=== PATIENT | male | born 1945 | race Caucasian/White ===

== ENCOUNTER 2017-12-17 13:14 | Inpatient (IN) ==
[2017-12-17] MEDS ORDERED: Ipratropium/Albuterol Neb 3 ML IH ONE (13:44)
--- NOTE | 2017-12-17 14:08 | Emergency Department Note ---
Disposition Clinical Impression: Acute exacerbation of chronic obstructive airways disease, Mucopurulent chronic bronchitis Disposition: Admitted As Inpatient Condition: Fair Time of Disposition: 15:00 (stephanie aguila) SOB HPI - General Chief Complaint: ED Shortness of Breath/Dyspnea Stated Complaint: Difficulty breathing Time Seen by Provider: 12/17/17 13:15 Source: patient Mode of arrival: ambulatory Limitations: no limitations Nursing Notes Reviewed: Yes Vital Signs Reviewed: Yes - History of Present Illness Pt Subjective Complaint: shortness of breath Onset (ago): day(s) Context: other (History of similar secondary to COPD) Severity: moderate Consistency/Duration: constant Improves with: oxygen, bronchodilators Worsens with: exertion, movement, coughing Known history of: COPD Associated symptoms: Reports: pain with inspiration, cough, wheezing, sputum production. Denies: chest pain, fever, orthopnea, lower extremity pain, polyuria, polydipsia, parasthesias, palpitations, hemoptysis, diaphoresis, nausea/vomiting, syncope, abdominal pain, rash, sense of impending doom Treatment prior to arrival: oxygen, bronchodilator Cough present: Yes Cough Description: Involuntary, Productive, Strong, Bronchospastic Cough Frequency: Intermittent Sputum production: Yes Sputum Amount: Moderate Sputum Color: Yellow, Green - Related Data Home Medications Medication Instructions Recorded Confirmed Acetaminophen [Tylenol] 325 mg PO Q6HR 11/06/17 12/17/17 Alendronate Sodium [Fosamax] 70 mg PO QWEEK 11/06/17 12/17/17 Aspirin 81 mg PO DAILY 11/06/17 12/17/17 Budesonide/Formoterol 160/4.5 2 puff IH BID 11/06/17 12/17/17 [Symbicort 160/4.5] Cholecalciferol (Vitamin D3) 1,000 mg PO DAILY 11/06/17 12/17/17 [Vitamin D3] Docusate Sodium [Dok] 100 mg PO BID 11/06/17 12/17/17 Gabapentin [Neurontin] 400 mg PO DAILY 11/06/17 12/17/17 Ipratropium/Albuterol Neb [Duoneb] 1 vial IH Q6H PRN 11/06/17 12/17/17 Levalbuterol Tartrate [Xopenex Hfa] 1 puff IH Q8H 11/06/17 12/17/17 Losartan [Cozaar] 25 mg PO DAILY 11/06/17 12/17/17 Methocarbamol [Robaxin] 500 mg PO Q4H PRN 11/06/17 12/17/17 Omeprazole [PriLOSEC] 20 mg PO DAILY 11/06/17 12/17/17 Quetiapine Fumarate [Seroquel] 400 mg PO BID 11/06/17 12/17/17 Simvastatin [Zocor] 40 mg PO DAILY 11/06/17 12/17/17 dilTIAZem HCl [Diltiazem 24Hr ER] 120 mg PO DAILY 11/06/17 12/17/17 Paroxetine HCl [Paxil] 40 mg PO DAILY 12/17/17 12/17/17 predniSONE [PredniSONE] 1 tab PO DAILY 12/17/17 12/17/17 Allergies Allergy/AdvReac Type Severity Reaction Status Date / Time No Known Allergies Allergy Verified 11/06/17 08:21 All systems ED: reviewed and negative except as stated. Review of Systems: As Per HPI Constitutional: Denies: fever, chills Eyes: Denies: eye pain, eye discharge ENT ED: Denies: ear pain, dysphagia Cardiovascular: Reports: chest pain. Denies: palpitations Respiratory: Reports: cough, dyspnea, wheezes, sputum production Gastrointestinal: Denies: abdominal pain, nausea Genitourinary: Denies: urgency, dysuria Musculoskeletal: Denies: back pain Integumentary: Denies: rash, abrasion Neurological: Denies: headache Psychiatric: Denies: anxiety Endocrine: Denies: fatigue Hematological/Lymphatic: Denies: easy bleeding Allergic/Immunologic: Denies: facial swelling Past Medical History - Past Medical History Attestation: Yes The following information was validated with the patient. Source: patient, old records reviewed, nursing notes reviewed Medical history: Reports: COPD, GERD, hyperlipidemia, hypertension Surgical history: Reports: other Psychiatric history: Reports: anxiety - Social History Smoking Status: Former smoker Smokeless Tobacco Status: No Alcohol use: Reports: none Drug use: Reports: none Physical Exam - General Limitations: no limitations General appearance: alert, in no apparent distress, anxious - Head Head exam: atraumatic - Eye Eye exam: Present: normal appearance, PERRL, EOMI - ENT ENT exam: normal exam, normal oropharynx, mucous membranes moist - Neck Neck exam: Present: normal inspection, full ROM, trachea midline - Chest Chest inspection: Present: normal inspection, symmetric chest wall rise - Respiratory Respiratory exam: Present: accessory muscle use, prolonged expiratory phase, other (Rhonchi) - Cardiovascular Cardiovascular exam: Present: regular rate, normal rhythm, normal heart sounds - Abdominal Exam Abdominal exam: Present: soft, Non-Tender, normal bowel sounds. Absent: mass, pulsatile mass - Expanded Upper Extremity Exam Shoulder exam: Present: normal inspection, full ROM Arm exam: Present: normal inspection, full ROM Elbow exam: Present: normal inspection, full ROM Forearm/Wrist exam: Present: normal inspection, full ROM Hand exam: Present: normal inspection, full ROM Vascular exam: Normal: capillary refill, radial pulse - Expanded Lower Extremity Exam Hip/Pelvis exam: Present: normal inspection, full ROM Upper leg exam: Present: normal inspection, full ROM Knee exam: Present: normal inspection, full ROM Lower leg exam: Present: normal inspection, full ROM Ankle exam: Present: normal inspection, full ROM Foot/toe exam: Present: normal inspection, full ROM Neurovascular/Tendon exam: Present: normal capillary refill, normal fine/light touch. Absent: motor deficit, sensory deficit, tendon deficit Gait: observed and normal - Back Exam Back exam: Present: normal inspection, full ROM. Absent: muscle spasm - Neurological Exam Neurological exam: Present: alert, oriented X3, CN II-XII intact, normal gait - Psychiatric Psychiatric exam: Present: normal affect, normal mood - Skin Skin exam: Present: warm, dry, intact, normal color Course Course Narrative: Patient was immediately seen and examined laboratory data was ordered based on the fact that he is complaining of COPD exacerbation-type symptoms as results having been obtained tissue showing bronchiolitis with COPD and then and noting that he has no elevated Mmd Unit Teacher-Two ABG was obtained as result we spoke to Dr. Handley agreed to admission patient transferred to [facility] stable Vital Signs Temperature 98.9 F 12/17/17 13:15 Pulse Rate 55 12/17/17 13:15 Respiratory Rate 20 12/17/17 13:15 Blood Pressure 133/91 12/17/17 13:15 O2 Sat by Pulse Oximetry 89 12/17/17 13:15 Temperature 98.9 F 12/17/17 13:15 Pulse Rate 101 12/17/17 14:55 Respiratory Rate 18 12/17/17 14:55 Blood Pressure 146/73 12/17/17 14:55 O2 Sat by Pulse Oximetry 91 12/17/17 14:55 Oxygen Delivery Oxygen Delivery Nasal Cannula Procedures - ABG Interpretation ABG Interpretation 1 Additional Comments: Compensated respiratory acidosis Shortness of Breath/Dyspnea - Differential Diagnosis Likely: acute exacerbation of chronic obstructive airways disease, pneumonia - Medical Records Medical records reviewed: Yes I reviewed the patient's medical records. - Lab Data Lab results reviewed: Yes I reviewed the patient's lab results. Result diagrams: 12/17/17 14:00 12/17/17 14:00 Lab Results 12/17/17 12/17/17 12/17/17 Range/Units 14:00 14:00 14:00 WBC 10.5 (4.3-11.1) K/mcL RBC 3.45 L (4.19-5.50) M/mcL Hgb 10.2 L (12.9-16.9) g/dL Hct 34.5 L (37.5-50.1) % MCV 100.0 (83.0-100.0) fL MCH 29.6 (28.0-33.3) pg MCHC 29.6 L (31.6-35.5) g/dL RDW 13.4 (11.5-14.5) % Plt Count 254 (140-400) K/mcL MPV 10.1 (9.4-12.4) fL Immature Gran % 0.4 (0-4) % Seg Neutrophils % 76.8 % Lymphocytes % 13.3 % Monocytes % 6.6 % Eosinophils % 2.5 % Basophils % 0.4 % Neutrophils # 8.1 (1.6-8.9) K/mcL Lymphocytes # 1.4 (0.6-4.6) K/mcL Monocytes # 0.7 (0.0-1.3) K/mcL Eosinophils # 0.3 (0.0-0.6) K/mcL Basophils # 0.0 (0.0-0.2) K/mcL PT (9.4-12.1) Seconds INR APTT (26.0-36.0) Seconds D-Dimer (0-500) ng/mLFEU Sodium 142 (136-145) mEq/L Potassium 4.2 (3.5-5.1) mEq/L Chloride 93 L (98-107) mEq/L Carbon Dioxide > 45 H* (23-29) mEq/L BUN 19 (8-23) mg/dL Creatinine 0.84 (0.70-1.30) mg/dL Est GFR ( Amer) > 60 (> 60) Est GFR (Non-Af Amer) > 60 (> 60) BUN/Creatinine Ratio 23 (6-26) Glucose 132 H (70-105) mg/dL Calculated Osmolality 298 (280-300) Lactic Acid 0.7 (0.5-2.2) mmol/L Calcium 10.4 H (8.6-10.3) mg/dL Total Bilirubin 0.3 (0.3-1.0) mg/dL AST 16 (13-39) Units/L ALT 17 (7-52) Units/L Alkaline Phosphatase 69 (34-104) Units/L Troponin I (< 0.04) ng/mL B-Natriuretic Peptide (Less than 100) pg/mL Serum Total Protein 7.0 (6.4-8.9) g/dL Albumin 4.1 (3.5-5.7) g/dL Globulin 2.9 (2.4-3.5) g/dL Albumin/Globulin Ratio 1.4 (1.1-2.2) 12/17/17 12/17/17 12/17/17 Range/Units 14:00 14:00 14:00 WBC (4.3-11.1) K/mcL RBC (4.19-5.50) M/mcL Hgb (12.9-16.9) g/dL Hct (37.5-50.1) % MCV (83.0-100.0) fL MCH (28.0-33.3) pg MCHC (31.6-35.5) g/dL RDW (11.5-14.5) % Plt Count (140-400) K/mcL MPV (9.4-12.4) fL Immature Gran % (0-4) % Seg Neutrophils % % Lymphocytes % % Monocytes % % Eosinophils % % Basophils % % Neutrophils # (1.6-8.9) K/mcL Lymphocytes # (0.6-4.6) K/mcL Monocytes # (0.0-1.3) K/mcL Eosinophils # (0.0-0.6) K/mcL Basophils # (0.0-0.2) K/mcL PT 10.4 (9.4-12.1) Seconds INR 1.0 APTT 34.0 (26.0-36.0) Seconds D-Dimer 217 (0-500) ng/mLFEU Sodium (136-145) mEq/L Potassium (3.5-5.1) mEq/L Chloride (98-107) mEq/L Carbon Dioxide (23-29) mEq/L BUN (8-23) mg/dL Creatinine (0.70-1.30) mg/dL Est GFR ( Amer) (> 60) Est GFR (Non-Af Amer) (> 60) BUN/Creatinine Ratio (6-26) Glucose (70-105) mg/dL Calculated Osmolality (280-300) Lactic Acid (0.5-2.2) mmol/L Calcium (8.6-10.3) mg/dL Total Bilirubin (0.3-1.0) mg/dL AST (13-39) Units/L ALT (7-52) Units/L Alkaline Phosphatase (34-104) Units/L Troponin I < 0.03 (< 0.04) ng/mL B-Natriuretic Peptide 51 (Less than 100) pg/mL Serum Total Protein (6.4-8.9) g/dL Albumin (3.5-5.7) g/dL Globulin (2.4-3.5) g/dL Albumin/Globulin Ratio (1.1-2.2) - Radiology Data Radiology results reviewed: Yes I reviewed the patient's radiology results. ITS Impressions Chest X-Ray 12/17/17 13:42 IMPRESSION: Diffuse COPD, with increased peribronchovascular change noted in the right lung base and left perihilar region which could represent superimposed acute bronchiolitis. D/ / Jovanny Crain MD / Jovanny Crain MD Interpreting Provider: Jovanny Crain MD - EKG Data EKG attestation: Yes I reviewed and interpreted this EKG. EKG results narrative: Atrial fib with a responsible 110 rate 110 QRS 105 QT 308 axis LXVI occasional P wave is noted Critical Care Time Critical Care Time: No
[2017-12-17 14:15] LABS: Basophils % 0.4 %; Eosinophils # 0.3 K/mcL (0.0-0.6); Eosinophils % 2.5 %; Hematocrit 34.5 % (37.5-50.1); Hemoglobin 10.2 g/dL (12.9-16.9); Immature Granulocytes % 0.4 % (0-4); Lymphocytes # 1.4 K/mcL (0.6-4.6); Lymphocytes % 13.3 %; Mean Corpuscular HGB Conc 29.6 g/dL (31.6-35.5); Mean Corpuscular Hemoglobin 29.6 pg (28.0-33.3); Mean Platelet Volume 10.1 fL (9.4-12.4); Monocytes # 0.7 K/mcL (0.0-1.3); Monocytes % 6.6 %; Neutrophils # 8.1 K/mcL (1.6-8.9); Platelet Count 254 K/mcL (140-400); Red Blood Count 3.45 M/mcL (4.19-5.50); Red Cell Distribution Width 13.4 % (11.5-14.5); Segmented Neutrophils % 76.8 %
[2017-12-17 14:24] LABS: Prothrombin Time 10.4 Seconds (9.4-12.1)
[2017-12-17] MEDS ORDERED: Azithromycin 500 MG in D5% in Water 250 ML IVPB ONE (14:52)
[2017-12-17] MEDS ORDERED: methylPREDNISolone 125 MG/2 ML VIAL IVP ONE (14:52)
[2017-12-17 14:56] LABS: Carbon Dioxide > 45 mEq/L (23-29)
[2017-12-17 15:03] LABS: Alanine Aminotransferase 17 Units/L (7-52); Albumin 4.1 g/dL (3.5-5.7); Albumin/Globulin Ratio 1.4 (1.1-2.2); Alkaline Phosphatase 69 Units/L (34-104); Aspartate Amino Transferase 16 Units/L (13-39); BUN/Creatinine Ratio 23 (6-26); Bilirubin,Total 0.3 mg/dL (0.3-1.0); Blood Urea Nitrogen 19 mg/dL (8-23); Calcium 10.4 mg/dL (8.6-10.3); Chloride 93 mEq/L (98-107); Globulin 2.9 g/dL (2.4-3.5); Glucose 132 mg/dL (70-105); Osmolality,Calculated 298 (280-300); Potassium 4.2 mEq/L (3.5-5.1); Sodium 142 mEq/L (136-145); eGFR For African Americans > 60 (> 60); eGFR For Non-African Americans > 60 (> 60)
[2017-12-17 15:20] LABS: ABG Base Excess 21 mEq/L (-2 to 3); ABG HCO3 49 mEq/L (21-27); ABG Oxygen Saturation 89 % (95-98); ABG PCO2 76 mmHg (35-45); ABG PH 7.42 pH Units (7.32-7.45); ABG PO2 59 mmHg (85-104); ABG TCO2 52 mEq/L (20-26); Blood Gas FiO2 2.5 (1-15=lpm or21-100=%)
[2017-12-17] MEDS ORDERED: NON-FORMULARY MEDICATION 1 EACH EACH (Alendronate Sodium [Fosamax] 70 MG) PO SCH (18:40)
[2017-12-17] MEDS ORDERED: Naloxone 0.4 MG/ML INJ IVP PRN (18:40)
[2017-12-17] MEDS ORDERED: Albuterol 2.5 MG/3 ML NEBULIZER IH PRN (18:40)
[2017-12-17] MEDS ORDERED: Methocarbamol 500 MG TABLET PO PRN (18:40)
--- NOTE | 2017-12-17 18:45 | Electrocardiograph Report ---
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
[2017-12-17] MEDS: Ipratropium/Albuterol Neb 3 ML IH SCH ×2 (19:13→22:00)
[2017-12-17] MEDS: 0.9 % Sodium Chloride 1,000 ML IVC SCH (20:47)
[2017-12-17] MEDS: MethylPREDNISolone 40 MG/ML VIAL IVP SCH (20:48)
[2017-12-17] MEDS ORDERED: Ipratropium/Albuterol Neb 3 ML IH PRN (22:00)
[2017-12-17] MEDS: Budesonide/Formoterol 160/4.5 MDI IH SCH (22:01)
[2017-12-17] MEDS: Levalbuterol 1 PUFF INHALER IH SCH (22:47)
[2017-12-18] MEDS: MethylPREDNISolone 40 MG/ML VIAL IVP SCH ×4 (00:31→17:31)
[2017-12-18] MEDS: Acetaminophen 325 MG TABLET PO SCH ×5 (00:32→17:31)
[2017-12-18] MEDS: Ipratropium/Albuterol Neb 3 ML IH SCH ×4 (04:29→23:13)
[2017-12-18 06:13] LABS: Basophils % 0.1 %; Hematocrit 31.7 % (37.5-50.1); Hemoglobin 9.6 g/dL (12.9-16.9); Immature Granulocytes % 0.6 % (0-4); Lymphocytes # 0.8 K/mcL (0.6-4.6); Lymphocytes % 9.5 %; Mean Corpuscular HGB Conc 30.3 g/dL (31.6-35.5); Mean Corpuscular Hemoglobin 29.8 pg (28.0-33.3); Mean Corpuscular Volume 98.4 fL (83.0-100.0); Mean Platelet Volume 10.8 fL (9.4-12.4); Monocytes # 0.1 K/mcL (0.0-1.3); Monocytes % 1.4 %; Neutrophils # 7.4 K/mcL (1.6-8.9); Platelet Count 266 K/mcL (140-400); Red Blood Count 3.22 M/mcL (4.19-5.50); Red Cell Distribution Width 13.5 % (11.5-14.5); Segmented Neutrophils % 88.4 %
[2017-12-18 07:16] LABS: BUN/Creatinine Ratio 29 (6-26); Blood Urea Nitrogen 27 mg/dL (8-23); Calcium 9.5 mg/dL (8.6-10.3); Carbon Dioxide 39 mEq/L (23-29); Chloride 95 mEq/L (98-107); Glucose 176 mg/dL (70-105); Osmolality,Calculated 299 (280-300); Sodium 140 mEq/L (136-145); eGFR For African Americans > 60 (> 60); eGFR For Non-African Americans > 60 (> 60)
[2017-12-18] MEDS: Levalbuterol 1 PUFF INHALER IH SCH ×2 (07:18→15:33)
[2017-12-18] MEDS ORDERED: Aspirin 81 MG TAB.CHEW PO SCH (09:00)
[2017-12-18] MEDS: 0.9 % Sodium Chloride 1,000 ML IVC SCH (09:39)
[2017-12-18 09:42] LABS: % Iron Saturation 8 % (20-55); Iron 26 mcg/dL (65-175); Transferrin 241 mg/dL (203-362)
[2017-12-18 10:00] LABS: Ferritin 83 ng/mL (20-250)
[2017-12-18 10:06] LABS: Vitamin B12 401 pg/mL (250-1100)
[2017-12-18 10:28] LABS: Folate > 22.3 ng/mL (3.0-16.0)
--- NOTE | 2017-12-18 10:48 | Internal Med History&Physical ---
Date of Encounter: 12/18/17 Time of Encounter: 10:05 Assessment and Plan (1) Acute exacerbation of chronic obstructive airways disease Current visit: Yes Status: Acute He has been started on Rocephin and Zithromax. I will add lactobacillus. Continue scheduled DuoNeb nebs and Symbicort. Solu-Medrol has been ordered. (2) Anemia Current visit: Yes Status: Acute Anemia testing shows iron 26, transferrin saturation 8%, transferrin 241, ferritin 83, B12 401, and folate > 22.3. Will start ferrous sulfate with vitamin C. Qualifiers: Anemia type: unspecified type Qualified Code(s): D64.9 - Anemia, unspecified (3) Hyperglycemia Current visit: Yes Status: Acute Will check hemoglobin A1c. Internal Medicine - H&P: HPI Chief complaint: Dyspnea Admitted From: Emergency Dept Plans for Post Hospital Care: Home History of present illness: Mr. Verde is a 71 year old male who came to emergency room stating he had a near fall while ambulating in his house. He did not fall and was able to stabilize himself using his walker. The episode caused him to become dyspneic. He took a nebulizer treatment without improvement. He came to emergency room and was evaluated and felt to have exacerbation of COPD. He was admitted to [facility] floor for ongoing care needs. He states his dyspnea is minimally improved at this time. His respiratory history is significant for having smoked from age [age] up to 3 packs per day. He wears oxygen at home / has a diagnosis of COPD. He reports multiple episodes of pneumonia in the past. He states [place] has done lung CT scan within the past 1-2 months. Past Med Surg Social Fam HX - Past Medical History Medical history: COPD, GERD, hyperlipidemia, hypertension Additional medical history: Tardive dyskinesia Diverticulitis. Tremor Arthralgia Knee. Cervical Myelopathy Pneumonia. Chronic pain syndrome Degeration of Lumbar/sacral. constipation Hyperkalemia. cognitive disorder Organic brain disorder. Anemia Hallucinations Dyspepsia. Pulmomary [place] lesion. Neoplasm f the Trachea. PE Psychiatric history: anxiety - Past Surgical History Surgical History: other Additional surgical history: foot surgery and ear surgery - Social History Smoking Status: Former smoker Smokeless Tobacco Status: No Alcohol use: none Drug use: none - Family History Mother History Unknown: Yes Internal Medicine - H&P: Meds Acetaminophen [Tylenol] 325 mg PO Q6HR 11/06/17 [History] Alendronate Sodium [Fosamax] 70 mg PO QWEEK 11/06/17 [History] Aspirin 81 mg PO DAILY 11/06/17 [History] Budesonide/Formoterol 160/4.5 [Symbicort 160/4.5] 2 puff IH BID 11/06/17 [ History] Cholecalciferol (Vitamin D3) [Vitamin D3] 1,000 mg PO DAILY 11/06/17 [History] Docusate Sodium [Dok] 100 mg PO BID 11/06/17 [History] Gabapentin [Neurontin] 400 mg PO DAILY 11/06/17 [History] Ipratropium/Albuterol Neb [Duoneb] 1 vial IH Q6H PRN 11/06/17 [History] Levalbuterol Tartrate [Xopenex Hfa] 1 puff IH Q8H 11/06/17 [History] Losartan [Cozaar] 25 mg PO DAILY 11/06/17 [History] Methocarbamol [Robaxin] 500 mg PO Q4H PRN 11/06/17 [History] Omeprazole [PriLOSEC] 40 mg PO BID 11/06/17 [History] Quetiapine Fumarate [Seroquel] 400 mg PO BID 11/06/17 [History] Simvastatin [Zocor] 40 mg PO DAILY 11/06/17 [History] dilTIAZem HCl [Diltiazem 24Hr ER] 120 mg PO DAILY 11/06/17 [History] Paroxetine HCl [Paxil] 40 mg PO DAILY 12/17/17 [History] Sucralfate [Carafate] 2 ml PO TID 12/17/17 [History] predniSONE [PredniSONE] 1 tab PO DAILY 12/17/17 [History] 3 Allergy/AdvReac Type Severity Reaction Status Date / Time No Known Allergies Allergy Verified 11/06/17 08:21 All Systems PM: A 10-system review of systems was performed and is negative for pertinent findings except as documented above in the HPI. Review of systems: Gen.: He states his weight has been stable the past few months Cardiovascular: He has history of hypertension but denies IN heart failure angina DVT or pulmonary embolus Respiratory: As per history of present illness GI: He denies disorders of his liver gallbladder or exocrine pancreas : He denies hematuria dysuria or kidney stones Neurologic: He denies large disposition strokes or seizures. Endocrine: He has borderline diabetes and hyperlipidemia but denies thyroid disease Hematology/oncology: He denies internal malignancies. He was unaware he had anemia on labs in emergency room. He denies other blood disorders. Psychiatric: He takes Paxil and Seroquel but does not know the diagnoses for these. [place] skeletal: He has muscle cramps and has had right ankle fracture surgical repair and left knee surgery. He denies gout or significant arthritis or other bone joint or muscle disorders. - Constitutional Vitals: Temp Pulse Resp BP Pulse Ox 98.6 F 104 16 171/80 95 12/18/17 06:00 12/18/17 06:00 12/18/17 06:00 12/18/17 06:00 12/18/17 06:00 Exam: Gen.: He is a well-developed well-nourished male sitting on the side of bed who appears dyspneic. HEENT: Head is atraumatic and normal cephalic. Eyes: EOMI. There is no scleral icterus. Mouth: Mucosa is moist. Neck: Supple and nontender. There is no thyromegaly or adenopathy noted. Heart: Regular without murmurs gallops or ectopics Lungs: No wheezes or crackles are heard. Abdomen: Soft and nontender. No masses or guarding are noted. Extremities: There is no cyanosis edema or clubbing noted. Dorsalis pedis and posttibial pulses are trace to 1+ palpable bilaterally. Neurologic: Mental status: He is talkative and a fairly good historian. He does did not remember some details of his history. Cranial nerves: Smile is symmetric. Forehead wrinkles bilaterally. Tongue protrudes midline. EOMI. Motor: There is no pronator drift. Cerebellar: Finger to nose is intact bilaterally. Skin: Warm and dry Internal Med - H&P Results - Labs CBC & Chem 7: 12/18/17 04:51 12/18/17 04:51 Labs: Short CBC 12/18/17 Range/Units 04:51 WBC 8.4 (4.3-11.1) K/mcL Hgb 9.6 L (12.9-16.9) g/dL Hct 31.7 L (37.5-50.1) % Plt Count 266 (140-400) K/mcL Neutrophils # 7.4 (1.6-8.9) K/mcL BMP 12/18/17 04:51 Sodium 140 Potassium 4.0 Chloride 95 L Carbon Dioxide 39 H BUN 27 H Creatinine 0.92 Glucose 176 H Calcium 9.5 - ABG Interpretation ABG results: 12/17/17 15:16 ABG pH 7.42 ABG pCO2 76 H* ABG pO2 59 L ABG HCO3 49 H ABG Total CO2 52 H ABG O2 Saturation 89 L ABG Base Excess 21 H
[2017-12-18] MEDS: Gabapentin 400 MG CAPSULE PO SCH (10:54)
[2017-12-18] MEDS: Cholecalciferol (D-3) 1,000 UNIT TABLET PO SCH (10:55)
[2017-12-18] MEDS: Diltiazem CD (24hr) 120 MG CAPSULE PO SCH (10:55)
[2017-12-18] MEDS: cefTRIAXone 1,000 MG in Water for inj. (sterile) 20 ML 10 ML IVP SCH (10:55)
[2017-12-18] MEDS ORDERED: ALPRAZolam 0.25 MG TABLET PO PRN (10:59)
[2017-12-18] MEDS: Budesonide/Formoterol 160/4.5 MDI IH SCH ×2 (11:27→23:12)
[2017-12-18] MEDS: Azithromycin 500 MG in D5% in Water 250 ML IVPB SCH (17:31)
[2017-12-18 20:38] LABS: Estimated Average Glucose 134 mg/dl; Hemoglobin A1C 6.3 %
[2017-12-18] MEDS: Lactobacillus 1 EACH CAP.SPRINK PO SCH (20:49)
[2017-12-19] MEDS: Acetaminophen 325 MG TABLET PO SCH ×2 (00:02→06:11)
[2017-12-19] MEDS: MethylPREDNISolone 40 MG/ML VIAL IVP SCH ×2 (00:02→06:12)
[2017-12-19] MEDS: Levalbuterol 1 PUFF INHALER IH SCH ×4 (00:46→21:55)
[2017-12-19] MEDS: Ipratropium/Albuterol Neb 3 ML IH SCH ×4 (03:17→22:10)
[2017-12-19] MEDS: Ascorbic Acid 500 MG TABLET PO SCH (06:11)
[2017-12-19 06:35] LABS: Hematocrit 30.1 % (37.5-50.1); Hemoglobin 9.4 g/dL (12.9-16.9); Immature Granulocytes % 0.7 % (0-4); Lymphocytes # 0.7 K/mcL (0.6-4.6); Lymphocytes % 5.2 %; Mean Corpuscular HGB Conc 31.2 g/dL (31.6-35.5); Mean Corpuscular Hemoglobin 29.9 pg (28.0-33.3); Mean Corpuscular Volume 95.9 fL (83.0-100.0); Mean Platelet Volume 10.9 fL (9.4-12.4); Monocytes # 0.6 K/mcL (0.0-1.3); Monocytes % 4.3 %; Neutrophils # 12.2 K/mcL (1.6-8.9); Platelet Count 270 K/mcL (140-400); Red Blood Count 3.14 M/mcL (4.19-5.50); Red Cell Distribution Width 13.7 % (11.5-14.5); Segmented Neutrophils % 89.8 %
[2017-12-19 06:58] LABS: BUN/Creatinine Ratio 38 (6-26); Blood Urea Nitrogen 33 mg/dL (8-23); Calcium 8.7 mg/dL (8.6-10.3); Carbon Dioxide 37 mEq/L (23-29); Chloride 97 mEq/L (98-107); Glucose 176 mg/dL (70-105); Osmolality,Calculated 304 (280-300); Potassium 4.1 mEq/L (3.5-5.1); Sodium 141 mEq/L (136-145); eGFR For African Americans > 60 (> 60); eGFR For Non-African Americans > 60 (> 60)
--- NOTE | 2017-12-19 09:06 | Internal Med Progress Note ---
Date of Encounter: 12/19/17 Time of Encounter: 09:00 - Assessment and plan (1) Acute exacerbation of chronic obstructive airways disease Current Visit: Yes Status: Acute Assessment and plan: December 19. Will continue present regimen except change to oral prednisone. We will change Xanax to scheduled. Anticipate discharge home tomorrow if stable. (2) Anemia Current Visit: Yes Status: Acute Assessment and plan: December 19. Continue ferrous sulfate with vitamin C Qualifiers: Anemia type: unspecified type Qualified Code(s): D64.9 - Anemia, unspecified (3) Hyperglycemia Current Visit: Yes Status: Acute Assessment and plan: December 19. Hemoglobin A1c acceptable at 6.3%. - Subjective Interval history: December 19. He has no new complaints and feels better but does not yet feel back to his baseline. - Constitutional Vitals: Temp Pulse Resp BP Pulse Ox 98.4 F 106 14 161/67 92 12/19/17 06:30 12/19/17 06:30 12/19/17 07:28 12/19/17 06:30 12/19/17 07:28 Exam: He appears very anxious. He is still dyspneic and speech is difficult to understand occasionally. Lungs show diminished breath sounds diffusely with very slight wheezing heard posteriorly. I reviewed his medications and lab results. Internal Medicine: Result - Labs CBC & Chem 7: 12/19/17 05:45 12/19/17 05:45 Labs: Short CBC 12/19/17 Range/Units 05:45 WBC 13.6 H D (4.3-11.1) K/mcL Hgb 9.4 L (12.9-16.9) g/dL Hct 30.1 L (37.5-50.1) % Plt Count 270 (140-400) K/mcL Neutrophils # 12.2 H (1.6-8.9) K/mcL BMP 12/19/17 05:45 Sodium 141 Potassium 4.1 Chloride 97 L Carbon Dioxide 37 H BUN 33 H Creatinine 0.86 Glucose 176 H Calcium 8.7 - ABG Interpretation ABG results: ABG ABG pH 7.42 pH Units (7.32-7.45) 12/17/17 15:16 ABG pCO2 76 mmHg (35-45) H* 12/17/17 15:16 ABG pO2 59 mmHg (85-104) L 12/17/17 15:16 ABG O2 Saturation 89 % (95-98) L 12/17/17 15:16 PT/INR, D-dimer PT 11.0 Seconds (9.4-12.1) 12/18/17 04:51 D-Dimer 217 ng/mLFEU (0-500) 12/17/17 14:00 Consult Discharge Plan - Plan [facility]errals: [facility]Primary Care Provider[facility] - 1 week Bee Ferguson [Family Provider] - 1 week
[2017-12-19] MEDS: Cholecalciferol (D-3) 1,000 UNIT TABLET PO SCH (09:07)
[2017-12-19] MEDS: Lactobacillus 1 EACH CAP.SPRINK PO SCH ×2 (09:07→21:14)
[2017-12-19] MEDS: Diltiazem CD (24hr) 120 MG CAPSULE PO SCH (09:07)
[2017-12-19] MEDS: Gabapentin 400 MG CAPSULE PO SCH (09:07)
[2017-12-19] MEDS: cefTRIAXone 1,000 MG in Water for inj. (sterile) 20 ML 10 ML IVP SCH (09:08)
[2017-12-19] MEDS: Budesonide/Formoterol 160/4.5 MDI IH SCH ×2 (10:18→22:10)
[2017-12-19] MEDS ORDERED: Acetaminophen 325 MG TABLET PO PRN (15:56)
[2017-12-19] MEDS: ALPRAZolam 0.25 MG TABLET PO SCH ×2 (16:13→23:57)
[2017-12-19] MEDS: predniSONE 10 MG TABLET PO SCH (16:14)
[2017-12-19] MEDS: Azithromycin 500 MG in D5% in Water 250 ML IVPB SCH (16:14)
[2017-12-20] MEDS: Ipratropium/Albuterol Neb 3 ML IH SCH ×2 (05:19→11:11)
[2017-12-20] MEDS ORDERED: *HR* Enoxaparin 40 MG/0.4 ML SYRINGE SQ SCH (06:00)
[2017-12-20 06:37] VITALS: BP 165/87
[2017-12-20] MEDS: Ascorbic Acid 500 MG TABLET PO SCH (06:43)
[2017-12-20] MEDS: Levalbuterol 1 PUFF INHALER IH SCH (08:22)
--- NOTE | 2017-12-20 09:36 | Discharge Summary ---
Date of Encounter: 12/20/17 Time of Encounter: 09:25 - Discharge Diagnosis (1) Acute exacerbation of chronic obstructive airways disease Priority: Primary Status: Acute (2) Anemia Priority: Secondary Status: Acute Qualifiers: Anemia type: unspecified type Qualified Code(s): D64.9 - Anemia, unspecified (3) Hyperglycemia Priority: Secondary Status: Acute Hospital course: Mr. Verde is a 71 year old male who came to emergency room stating he had a near fall while ambulating in his house. He did not fall and was able to stabilize himself using his walker. The episode caused him to become dyspneic. He took a nebulizer treatment without improvement. He came to emergency room and was evaluated and felt to have exacerbation of COPD. He was admitted to [facility] for ongoing care needs. Initial orders were written by the emergency room physician. I saw him on December 18 and performed a history and physical. He was started on IV Rocephin and Zithromax with lactobacillus. He had clinical improvement and felt stable for discharge home on December 20. He will continue with antibiotic and probiotic for 3 additional days at discharge. Hemoglobin A1c returned acceptable at 6.3%. He appears to have DM 2 that is diet controlled at this time. Blood pressure remained slightly above desirable range. He will be started on Toprol-XL at discharge to improve blood pressure and borderline tachycardia. He will follow up with his PCP at [facility] within 1 week. - Time Spent with Patient Total time spent providing and/or coordinating discharge services: - Discharge Medications Prescriptions: Cefuroxime PO [Ceftin] 500 mg PO Q12HR #6 tablet Azithromycin [Zithromax] 250 mg PO DAILY #3 tablet Lactobacillus [Culturelle] 1 each PO BID #6 cap.sprink Metoprolol XL (24 HR) Succ [Toprol XL] 25 mg PO DAILY #30 tab.er.24h predniSONE [PredniSONE] 10 mg PO BIDWM #6 tablet Home Medications: Acetaminophen [Tylenol] 325 mg PO Q6HR 11/06/17 [History] Alendronate Sodium [Fosamax] 70 mg PO QWEEK 11/06/17 [History] Aspirin 81 mg PO DAILY 11/06/17 [History] Budesonide/Formoterol 160/4.5 [Symbicort 160/4.5] 2 puff IH BID 11/06/17 [ History] Cholecalciferol (Vitamin D3) [Vitamin D3] 1,000 mg PO DAILY 11/06/17 [History] Docusate Sodium [Dok] 100 mg PO BID 11/06/17 [History] Gabapentin [Neurontin] 400 mg PO DAILY 11/06/17 [History] Ipratropium/Albuterol Neb [Duoneb] 1 vial IH Q6H PRN 11/06/17 [History] Levalbuterol Tartrate [Xopenex Hfa] 1 puff IH Q8H 11/06/17 [History] Losartan [Cozaar] 25 mg PO DAILY 11/06/17 [History] Methocarbamol [Robaxin] 500 mg PO Q4H PRN 11/06/17 [History] Omeprazole [PriLOSEC] 40 mg PO BID 11/06/17 [History] Quetiapine Fumarate [Seroquel] 400 mg PO BID 11/06/17 [History] Simvastatin [Zocor] 40 mg PO DAILY 11/06/17 [History] dilTIAZem HCl [Diltiazem 24Hr ER] 120 mg PO DAILY 11/06/17 [History] Paroxetine HCl [Paxil] 40 mg PO DAILY 12/17/17 [History] Sucralfate [Carafate] 2 ml PO TID 12/17/17 [History] predniSONE [PredniSONE] 1 tab PO DAILY 12/17/17 [History] Azithromycin [Zithromax] 250 mg PO DAILY #3 tablet 12/20/17 [Rx] Cefuroxime PO [Ceftin] 500 mg PO Q12HR #6 tablet 12/20/17 [Rx] Lactobacillus [Culturelle] 1 each PO BID #6 cap.sprink 12/20/17 [Rx] Metoprolol XL (24 HR) Succ [Toprol XL] 25 mg PO DAILY #30 tab.er.24h 12/20/17 [ Rx] predniSONE [PredniSONE] 10 mg PO BIDWM #6 tablet 12/20/17 [Rx] Allergies/Adverse Reactions: 3 Allergy/AdvReac Type Severity Reaction Status Date / Time No Known Allergies Allergy Verified 11/06/17 08:21 Date of admission: 12/19/17 11:44 [facility] - Constitutional Vitals: Temp Pulse Resp BP Pulse Ox 98.6 F 99 18 165/87 97 12/20/17 06:36 12/20/17 06:36 12/20/17 06:36 12/20/17 06:36 12/20/17 06:36 - Patient Status Disposition: Home, Self-Care Condition: Fair Overall status at discharge: patient is progressing back to baseline - Discharge Instructions Follow Up With: [facility] [Primary Care Provider[facility] - 1 week - Diet and Activity Activity: resume usual activities as tolerated Diet: advance to your usual diet
[2017-12-20] MEDS: Lactobacillus 1 EACH CAP.SPRINK PO SCH (09:50)
[2017-12-20] MEDS: Gabapentin 400 MG CAPSULE PO SCH (09:50)
[2017-12-20] MEDS: Cholecalciferol (D-3) 1,000 UNIT TABLET PO SCH (09:50)
[2017-12-20] MEDS: predniSONE 10 MG TABLET PO SCH (09:50)
[2017-12-20] MEDS: cefTRIAXone 1,000 MG in Water for inj. (sterile) 20 ML 10 ML IVP SCH (09:51)
[2017-12-20] MEDS: ALPRAZolam 0.25 MG TABLET PO SCH (09:51)
[2017-12-20] MEDS: Diltiazem CD (24hr) 120 MG CAPSULE PO SCH (09:51)
[2017-12-20] MEDS: Budesonide/Formoterol 160/4.5 MDI IH SCH (11:12)
== END 2017-12-20 12:40 | disposition home or self-care (01) | DRG 192 ==
LOC: INPPIK 13:14 → EMEROOPIK 13:14 → INPPIK 16:26
PROVIDERS: ADMIT Internal Medicine; ATTEND Internal Medicine

== ENCOUNTER 2018-08-21 17:55 | Inpatient (IN) ==
--- NOTE | 2018-08-21 18:09 | Emergency Department Note ---
Disposition Clinical Impression: Acute exacerbation of chronic obstructive airways disease, Hypercapnia, Elevated troponin I level Disposition: Admitted As Inpatient Condition: Good Referrals: NONE,PCP [Primary Care Provider] - Forms: ED Satisfaction Letter Time of Disposition: 19:29 SOB HPI - General Chief Complaint: ED Shortness of Breath/Dyspnea Stated Complaint: difficulty in breathing Time Seen by Provider: 08/21/18 18:00 Source: EMS Mode of arrival: EMS Limitations: physical limitation Nursing Notes Reviewed: Yes Vital Signs Reviewed: Yes - History of Present Illness 72-year-old male who presents to the emergency room is having altered mental status patient apparently had a similar episode earlier this year in July same presentation patient apparently had been fine all day then he when he went to dinner and altered mental status where he was lethargic was having trouble getting up and moving 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 a states that they think that he has CO2 is not up-to-date not sure the Last Evening He's Had No Ab dominal Pain or Discomfort He's Had No Reported Cough Congestion Chest Pain Prior to This As Result Patient Was Sent to the ER History Is Limited Because the Patient Is Nonverbal at This Time and History Is Limited Provided by the Changes Shift Nursing Staff at the Care Facility Pt Subjective Complaint: shortness of breath Onset (ago): Just [employer] Severity: moderate Consistency/Duration: constant Improves with: nothing Worsens with: nothing Known history of: COPD Associated symptoms: Reports: other (Altered mental status). Denies: chest pain, pain with inspiration, fever, cough, wheezing, sputum production, orthopnea, lower extremity pain, polyuria, polydipsia, parasthesias, palpitations, hemoptysis, diaphoresis, nausea/vomiting, syncope, abdominal pain, sense of impending doom Treatment prior to arrival: oxygen, other (BiPAP) Cough present: No Sputum production: No - Related Data Home Medications Medication Instructions Recorded Confirmed Acetaminophen [Tylenol] 325 mg PO Q8H PRN 11/06/17 08/21/18 Aspirin 81 mg PO DAILY 11/06/17 08/21/18 Budesonide/Formoterol 160/4.5 2 puff IH BID 11/06/17 08/21/18 [Symbicort 160/4.5] Cholecalciferol (Vitamin D3) 1,000 mg PO DAILY 11/06/17 08/21/18 [Vitamin D3] Docusate Sodium [Dok] 100 mg PO BID 11/06/17 08/21/18 Gabapentin [Neurontin] 400 mg PO DAILY 11/06/17 08/21/18 Ipratropium/Albuterol Neb [Duoneb] 1 vial IH Q6H PRN 11/06/17 08/21/18 Losartan [Cozaar] 25 mg PO DAILY 11/06/17 08/21/18 Methocarbamol [Robaxin] 500 mg PO Q4H PRN 11/06/17 08/21/18 Quetiapine Fumarate [Seroquel] 400 mg PO BID 11/06/17 08/21/18 Simvastatin [Zocor] 20 mg PO DAILY 11/06/17 08/21/18 dilTIAZem HCl [Diltiazem 24Hr ER] 240 mg PO DAILY 11/06/17 08/21/18 Paroxetine HCl [Paxil] 40 mg PO DAILY 12/17/17 08/21/18 Sucralfate [Carafate] 1 gm PO ACHS 12/17/17 08/21/18 predniSONE [PredniSONE] 4 mg PO DAILY 12/17/17 08/21/18 Roflumilast [Daliresp] 500 mcg PO DAILY 07/05/18 08/21/18 Buspirone HCl [Buspar] 10 mg PO BID 07/06/18 08/21/18 Calcium Carbonate/Vitamin D3 1 tab PO BID 07/06/18 08/21/18 [Calcium 500 + Vit D Caplet] Denosumab [Prolia (For Outpatient 60 mg SQ Q6M 07/06/18 08/21/18 Infusion)] Levalbuterol HCl [Xopenex Neb] 1.25 mg IH Q4H PRN 07/06/18 08/21/18 Melatonin 3 mg PO HS 07/06/18 08/21/18 Multivit-Min/FA/Lycopen/Lutein [A 1 tab PO DAILY 07/06/18 08/21/18 Thru Z Select Multivit Tab] Pantoprazole Sodium 40 mg PO BID 07/06/18 08/21/18 Tiotropium [Spiriva] 18 mcg IH DAILY 07/06/18 08/21/18 Allergies Allergy/AdvReac Type Severity Reaction Status Date / Time No Known Allergies Allergy Verified 08/21/18 18:10 Limitations: ROS unobtainable due to patients medical condition Past Medical History - Past Medical History Attestation: Yes The following information was validated with the patient. Source: old records reviewed, obtained from family, nursing notes reviewed Medical history: Reports: COPD, GERD, hyperlipidemia, hypertension, other Surgical history: Reports: other Psychiatric history: Reports: anxiety - Social History Smoking Status: Former smoker Smokeless Tobacco Status: No Alcohol use: Reports: none Drug use: Reports: none Physical Exam - General Limitations: no limitations General appearance: alert, in no apparent distress, anxious, other (Eyes are open he looks about that he does not carry on any conversation) - Head Head exam: atraumatic, normocephalic, normal inspection - Eye Eye exam: Present: normal appearance, PERRL, EOMI - ENT ENT exam: normal exam, normal oropharynx, mucous membranes moist, TM's normal bilaterally, normal external ear exam - Neck Neck exam: Present: normal inspection, full ROM, trachea midline - Chest Chest inspection: Present: normal inspection, symmetric chest wall rise - Respiratory Respiratory exam: Present: normal lung sounds bilaterally - Cardiovascular Cardiovascular exam: Present: tachycardia, irregular rhythm, normal heart sounds - Abdominal Exam Abdominal exam: Present: soft, Non-Tender, normal bowel sounds. Absent: mass, pulsatile mass - Extremities Exam Extremities exam: Present: normal inspection, full ROM, normal capillary refill. Absent: tenderness, pedal edema, joint swelling, calf tenderness - Expanded Lower Extremity Exam Neurovascular/Tendon exam: Present: normal capillary refill, normal fine/light touch - Back Exam Back exam: Present: normal inspection, full ROM. Absent: muscle spasm - Neurological Exam Neurological exam: Present: alert, oriented X3, CN II-XII intact, normal gait - Psychiatric Psychiatric exam: Present: normal affect, normal mood - Skin Skin exam: Present: warm, dry, intact, normal color Course Course Narrative: Patient was immediately seen and evaluated patient was placed on our BiPAP sats held between 90 and 92% patient still had atrial fib with rate of 110 to 115 resting comfortably and his blood pressure is now having about 130/[address] Handley after we had obtained the DNR CC paperwork and patient will be admitted here with the elevated troponin and reviewing of the prior to healthcare complex there does not appear to be in the family is wanting further aggressively done patient was then admitted transfer to [facility] serial enzymes will continue Vital Signs Temperature 97.5 F L 08/21/18 17:58 Pulse Rate 115 08/21/18 17:58 Respiratory Rate 20 08/21/18 17:58 Blood Pressure 87/43 08/21/18 17:58 O2 Sat by Pulse Oximetry 97 08/21/18 17:58 Temperature 97.5 F L 08/21/18 17:58 Pulse Rate 112 08/21/18 19:05 Respiratory Rate 16 08/21/18 19:05 Blood Pressure 113/69 08/21/18 19:05 O2 Sat by Pulse Oximetry 93 08/21/18 19:05 Oxygen Delivery Oxygen Delivery Bipap Shortness of Breath/Dyspnea - Differential Diagnosis Likely: acute exacerbation of chronic obstructive airways disease - Medical Records Medical records reviewed: Yes I reviewed the patient's medical records. - Lab Data Lab results reviewed: Yes I reviewed the patient's lab results. Result diagrams: 08/21/18 18:33 08/21/18 18:33 Lab Results 08/21/18 08/21/18 08/21/18 Range/Units 18:20 18:33 18:33 WBC 9.9 (4.3-11.1) K/mcL RBC 3.30 L (4.19-5.50) M/mcL Hgb 9.7 L (12.9-16.9) g/dL Hct 33.1 L (37.5-50.1) % MCV 100.3 H (83.0-100.0) fL MCH 29.4 (28.0-33.3) pg MCHC 29.3 L (31.6-35.5) g/dL RDW 13.3 (11.5-14.5) % Plt Count 269 (140-400) K/mcL MPV 10.3 (9.4-12.4) fL Immature Gran % 0.4 (0-4) % Seg Neutrophils % 84.1 % Lymphocytes % 7.0 % Monocytes % 7.5 % Eosinophils % 0.7 % Basophils % 0.3 % Neutrophils # 8.3 (1.6-8.9) K/mcL Lymphocytes # 0.7 (0.6-4.6) K/mcL Monocytes # 0.7 (0.0-1.3) K/mcL Eosinophils # 0.1 (0.0-0.6) K/mcL Basophils # 0.0 (0.0-0.2) K/mcL PT 12.2 H (9.4-12.1) Seconds INR 1.1 APTT 31.0 (26.0-36.0) Seconds Sample Site R Radial ABG pH 7.33 (7.32-7.45) pH Units ABG pCO2 90 H* (35-45) mmHg ABG pO2 105 H (85-104) mmHg ABG HCO3 48 H (21-27) mEq/L ABG Total CO2 > 50 H (20-26) mEq/L ABG O2 Saturation 97 (95-98) % ABG Base Excess 18 H (-2 to 3) mEq/L Dewey Test N/A Respiration Rate 14 O2 Delivery Device BiPAP Blood Gas Modality BiLevel Inspired O2 40.0 (1-15=lpm [id number]=%) Sodium (136-145) mEq/L Potassium (3.5-5.1) mEq/L Chloride (98-107) mEq/L Carbon Dioxide (23-29) mEq/L BUN (8-23) mg/dL Creatinine (0.70-1.30) mg/dL Est GFR ( Amer) (> 60) Est GFR (Non-Af Amer) (> 60) BUN/Creatinine Ratio (6-26) Glucose (70-105) mg/dL Calculated Osmolality (280-300) Lactic Acid (0.5-2.2) mmol/L Calcium (8.6-10.3) mg/dL Total Bilirubin (0.3-1.0) mg/dL AST (13-39) Units/L ALT (7-52) Units/L Alkaline Phosphatase (34-104) Units/L Troponin I (< 0.04) ng/mL Serum Total Protein (6.4-8.9) g/dL Albumin (3.5-5.7) g/dL Globulin (2.4-3.5) g/dL Albumin/Globulin Ratio (1.1-2.2) Person Notif of Crit Dr. Nancy Woodard 08/21/18 08/21/18 Range/Units 18:33 18:33 WBC (4.3-11.1) K/mcL RBC (4.19-5.50) M/mcL Hgb (12.9-16.9) g/dL Hct (37.5-50.1) % MCV (83.0-100.0) fL MCH (28.0-33.3) pg MCHC (31.6-35.5) g/dL RDW (11.5-14.5) % Plt Count (140-400) K/mcL MPV (9.4-12.4) fL Immature Gran % (0-4) % Seg Neutrophils % % Lymphocytes % % Monocytes % % Eosinophils % % Basophils % % Neutrophils # (1.6-8.9) K/mcL Lymphocytes # (0.6-4.6) K/mcL Monocytes # (0.0-1.3) K/mcL Eosinophils # (0.0-0.6) K/mcL Basophils # (0.0-0.2) K/mcL PT (9.4-12.1) Seconds INR APTT (26.0-36.0) Seconds Sample Site ABG pH (7.32-7.45) pH Units ABG pCO2 (35-45) mmHg ABG pO2 (85-104) mmHg ABG HCO3 (21-27) mEq/L ABG Total CO2 (20-26) mEq/L ABG O2 Saturation (95-98) % ABG Base Excess (-2 to 3) mEq/L Dewey Test Respiration Rate O2 Delivery Device Blood Gas Modality Inspired O2 (1-15=lpm [id number]=%) Sodium 141 (136-145) mEq/L Potassium 3.9 (3.5-5.1) mEq/L Chloride 93 L (98-107) mEq/L Carbon Dioxide 45 H* (23-29) mEq/L BUN 26 H (8-23) mg/dL Creatinine 1.00 (0.70-1.30) mg/dL Est GFR ( Amer) > 60 (> 60) Est GFR (Non-Af Amer) > 60 (> 60) BUN/Creatinine Ratio 26 (6-26) Glucose 140 H (70-105) mg/dL Calculated Osmolality 299 (280-300) Lactic Acid 0.8 (0.5-2.2) mmol/L Calcium 9.9 (8.6-10.3) mg/dL Total Bilirubin 0.2 L (0.3-1.0) mg/dL AST 18 (13-39) Units/L ALT 18 (7-52) Units/L Alkaline Phosphatase 48 (34-104) Units/L Troponin I 0.13 H* (< 0.04) ng/mL Serum Total Protein 6.2 L (6.4-8.9) g/dL Albumin 3.5 (3.5-5.7) g/dL Globulin 2.7 (2.4-3.5) g/dL Albumin/Globulin Ratio 1.3 (1.1-2.2) Person Notif of Crit - Radiology Data Radiology results reviewed: Yes I reviewed the patient's radiology results. ITS Impressions Chest X-Ray 08/21/18 18:04 IMPRESSION: Again noted are irregular appearing left upper lobe pulmonary nodules. A chest CT is suggested for further evaluation. D/ / Gilbert Serrano MD / Gilbert Serrano MD Interpreting Provider: Gilbert Serrano MD Head CT 08/21/18 18:05 IMPRESSION: No acute intracranial abnormality. D/ / Temi Carbone Cha, MD / Temi Carbone Cha, MD Interpreting Provider: Temi Carbone Cha, MD - EKG Data EKG attestation: Yes I reviewed and interpreted this EKG. EKG results narrative: Atrial fib with RVR ventricular premature complex rate 122 QRS 114 QT 371 axis LI The squad EKG was, heart rate of 122 QRS 104 QT 320 axis 64 Critical Care Time Critical Care Time: Yes Total Critical Care Time: 35 Attestation: 35 minutes high probably clinically significant life-threatening deterioration condition excluding separately reportable procedures as result patient having one hypercapnia with elevated CO2 which could cause further degradation of his mental status #2 elevated troponin which is most likely secondary to cardiac are versus that of an underlying myocardial infarction and the altered mental status which is most likely a result of the hypercapnia as result patient be admitted in our facility he is a DNR CC arrest DO NOT INTUBATE CPR only this is added to the chart where there is been no previous history of this in the chart patient will then be admitted services Dr. Hanldey we did discuss the fact that he is a DNR CC arrest with a DO NOT INTUBATE associated order with his permission
[2018-08-21] MEDS ORDERED: 0.9 % Sodium Chloride 1,000 ML IVC SCH (18:15)
[2018-08-21 18:24] LABS: ABG Base Excess 18 mEq/L (-2 to 3); ABG HCO3 48 mEq/L (21-27); ABG Oxygen Saturation 97 % (95-98); ABG PCO2 90 mmHg (35-45); ABG PH 7.33 pH Units (7.32-7.45); ABG PO2 105 mmHg (85-104); ABG TCO2 > 50 mEq/L (20-26); Blood Gas Modality BiLevel; Blood Gas Respiration Rate 14
[2018-08-21 18:43] LABS: Basophils % 0.3 %; Eosinophils # 0.1 K/mcL (0.0-0.6); Eosinophils % 0.7 %; Hematocrit 33.1 % (37.5-50.1); Hemoglobin 9.7 g/dL (12.9-16.9); Immature Granulocytes % 0.4 % (0-4); Lymphocytes # 0.7 K/mcL (0.6-4.6); Mean Corpuscular HGB Conc 29.3 g/dL (31.6-35.5); Mean Corpuscular Hemoglobin 29.4 pg (28.0-33.3); Mean Corpuscular Volume 100.3 fL (83.0-100.0); Mean Platelet Volume 10.3 fL (9.4-12.4); Monocytes # 0.7 K/mcL (0.0-1.3); Monocytes % 7.5 %; Neutrophils # 8.3 K/mcL (1.6-8.9); Platelet Count 269 K/mcL (140-400); Red Cell Distribution Width 13.3 % (11.5-14.5); Segmented Neutrophils % 84.1 %
[2018-08-21 18:51] LABS: INR 1.1; Prothrombin Time 12.2 Seconds (9.4-12.1)
[2018-08-21 19:07] LABS: Alanine Aminotransferase 18 Units/L (7-52); Albumin 3.5 g/dL (3.5-5.7); Albumin/Globulin Ratio 1.3 (1.1-2.2); Alkaline Phosphatase 48 Units/L (34-104); Aspartate Amino Transferase 18 Units/L (13-39); BUN/Creatinine Ratio 26 (6-26); Bilirubin,Total 0.2 mg/dL (0.3-1.0); Blood Urea Nitrogen 26 mg/dL (8-23); Calcium 9.9 mg/dL (8.6-10.3); Carbon Dioxide 45 mEq/L (23-29); Chloride 93 mEq/L (98-107); Globulin 2.7 g/dL (2.4-3.5); Glucose 140 mg/dL (70-105); Osmolality,Calculated 299 (280-300); Potassium 3.9 mEq/L (3.5-5.1); Sodium 141 mEq/L (136-145); Total Protein 6.2 g/dL (6.4-8.9); Troponin I 0.13 ng/mL (< 0.04); eGFR For Non-African Americans > 60 (> 60)
[2018-08-21] MEDS ORDERED: Melatonin 3 MG TABLET PO SCH (21:02)
[2018-08-21] MEDS ORDERED: Levofloxacin 500 MG/100 ML 500 MG/100 ML BAG IVPB SCH (21:02)
[2018-08-21] MEDS ORDERED: Acetaminophen 325 MG TABLET PO PRN (21:02)
[2018-08-21] MEDS ORDERED: Naloxone 0.4 MG/ML INJ IVP PRN (21:02)
[2018-08-21] MEDS ORDERED: Methocarbamol 500 MG TABLET PO PRN (21:02)
[2018-08-22] MEDS: MethylPREDNISolone 40 MG/ML VIAL IVP SCH ×4 (00:42→17:52)
[2018-08-22] MEDS: 0.9 % Sodium Chloride 1,000 ML IVC SCH ×2 (00:42→06:29)
[2018-08-22] MEDS: Ipratropium 1 PUFF INHALER IH SCH ×5 (01:07→11:29)
[2018-08-22] MEDS ORDERED: *HR* Propranolol 1 MG/ML VIAL IVP ONE (01:08)
[2018-08-22] MEDS: Albuterol 2.5 MG/3 ML NEBULIZER IH SCH ×5 (01:10→11:30)
[2018-08-22 08:26] LABS: Basophils % 0.1 %; Hematocrit 36.4 % (37.5-50.1); Hemoglobin 10.6 g/dL (12.9-16.9); Immature Granulocytes % 0.4 % (0-4); Lymphocytes # 0.4 K/mcL (0.6-4.6); Lymphocytes % 4.1 %; Mean Corpuscular HGB Conc 29.1 g/dL (31.6-35.5); Mean Corpuscular Hemoglobin 29.4 pg (28.0-33.3); Mean Corpuscular Volume 101.1 fL (83.0-100.0); Mean Platelet Volume 10.9 fL (9.4-12.4); Monocytes # 0.1 K/mcL (0.0-1.3); Monocytes % 1.3 %; Neutrophils # 9.8 K/mcL (1.6-8.9); Platelet Count 319 K/mcL (140-400); Red Cell Distribution Width 13.2 % (11.5-14.5); Segmented Neutrophils % 94.1 %
[2018-08-22 08:27] LABS: INR 1.1; Prothrombin Time 12.2 Seconds (9.4-12.1)
[2018-08-22 08:30] LABS: Activated Partial Thrombo Time 31.6 Seconds (26.0-36.0)
[2018-08-22] MEDS ORDERED: Diltiazem CD (24hr) 120 MG CAPSULE PO SCH (09:00)
[2018-08-22] MEDS ORDERED: Multivit/Ca/Min/Fe/FA 1 TAB TABLET PO SCH (09:00)
[2018-08-22] MEDS ORDERED: (Roflumilast [Daliresp] 500 MCG) PO SCH (09:00)
[2018-08-22] MEDS ORDERED: Gabapentin 400 MG CAPSULE PO SCH (09:00)
[2018-08-22] MEDS ORDERED: Aspirin 81 MG TAB.CHEW PO SCH (09:00)
[2018-08-22] MEDS ORDERED: Cholecalciferol (D-3) 1,000 UNIT TABLET PO SCH (09:00)
[2018-08-22 09:02] LABS: BUN/Creatinine Ratio 31 (6-26); Blood Urea Nitrogen 28 mg/dL (8-23); Calcium 9.5 mg/dL (8.6-10.3); Carbon Dioxide 42 mEq/L (23-29); Chloride 94 mEq/L (98-107); Glucose 203 mg/dL (70-105); Osmolality,Calculated 301 (280-300); Potassium 4.9 mEq/L (3.5-5.1); Sodium 140 mEq/L (136-145); eGFR For Non-African Americans > 60 (> 60)
[2018-08-22] MEDS ORDERED: Budesonide/Formoterol 160/4.5 1 PUFF INH IH SCH (10:00)
--- NOTE | 2018-08-22 12:51 | Internal Med History&Physical ---
Date of Encounter: 08/22/18 Time of Encounter: 12:20 Assessment and Plan (1) Acute exacerbation of chronic obstructive airways disease Current visit: Yes Status: Acute He has been started on IV Levaquin with Solu-Medrol. Lactobacillus will be added. Chest CT will be done to further evaluate and follow-up on history of lung nodules. (2) Hyperglycemia Current visit: No Status: Acute Check hemoglobin A1c in a.m. (3) Hypertension Current visit: No Status: Chronic Continue Cardizem and Cozaar. Qualifiers: Hypertension type: essential hypertension Qualified Code(s): I10 - Essential (primary) hypertension (4) Atrial fibrillation Current visit: No Status: Chronic Duration unknown but present on December 2017 EKG. Continue diltiazem for rate control. Lanoxin will be added for RVR. Echocardiogram will be ordered and he will be started on Xarelto. Qualifiers: Atrial fibrillation type: chronic Qualified Code(s): I48.2 - Chronic atrial fibrillation (5) Elevated troponin I level Current visit: Yes Status: Acute Suspect due to demand ischemia. (6) Anemia Current visit: No Status: Chronic Anemia testing will be done in a.m. Qualifiers: Anemia type: unspecified type Qualified Code(s): D64.9 - Anemia, unspecified Internal Medicine - H&P: HPI Chief complaint: Dyspnea and lethargy Admitted From: Emergency Dept Plans for Post Hospital Care: Home History of present illness: Mr. Verde is a 72 year old male was brought to emergency room from a local long-term after staff there reported him to have had dyspnea and lethargy. He reports he had a cough that was nonproductive. He has had sensation of low-grade fevers and chills but denies vomiting or diarrhea. He was evaluated emergency room is felt to have exacerbation of COPD. He was admitted to [facility] floor for ongoing care needs. Respiratory history is significant for having smoked from age [age] up to 3 packs per day. He has a diagnosis COPD and uses oxygen 24/. He does not recall being tested for sleep apnea. He has had lung nodules seen on chest CT in the past but does not recall when his most recent CT was done. Past Med Surg Social Fam HX - Past Medical History Medical history: COPD, GERD, hyperlipidemia, hypertension, other Additional medical history: Tardive dyskinesia Diverticulitis. Tremor Arthralgia Knee. Cervical Myelopathy Pneumonia. Chronic pain syndrome Degeration of Lumbar/sacral. constipation Hyperkalemia. cognitive disorder Organic brain disorder. Anemia Hallucinations Dyspepsia. 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 Psychiatric history: anxiety - Past Surgical History Surgical History: other Additional surgical history: foot surgery and ear surgery - Social History Smoking Status: Former smoker Smokeless Tobacco Status: No Alcohol use: none Drug use: none Internal Medicine - H&P: Meds Acetaminophen [Tylenol] 325 mg PO Q8H PRN 11/06/17 [History] Aspirin 81 mg PO DAILY 11/06/17 [History] Budesonide/Formoterol 160/4.5 [Symbicort 160/4.5] 2 puff IH BID 11/06/17 [Hist ory] Cholecalciferol (Vitamin D3) [Vitamin D3] 1,000 mg PO DAILY 11/06/17 [History] Docusate Sodium [Dok] 100 mg PO BID 11/06/17 [History] Gabapentin [Neurontin] 400 mg PO DAILY 11/06/17 [History] Ipratropium/Albuterol Neb [Duoneb] 1 vial IH Q6H PRN 11/06/17 [History] Losartan [Cozaar] 25 mg PO DAILY 11/06/17 [History] Methocarbamol [Robaxin] 500 mg PO Q4H PRN 11/06/17 [History] Quetiapine Fumarate [Seroquel] 400 mg PO BID 11/06/17 [History] Simvastatin [Zocor] 20 mg PO DAILY 11/06/17 [History] dilTIAZem HCl [Diltiazem 24Hr ER] 240 mg PO DAILY 11/06/17 [History] Paroxetine HCl [Paxil] 40 mg PO DAILY 12/17/17 [History] Sucralfate [Carafate] 1 gm PO ACHS 12/17/17 [History] predniSONE [PredniSONE] 4 mg PO DAILY 12/17/17 [History] Roflumilast [Daliresp] 500 mcg PO DAILY 07/05/18 [History] Buspirone HCl [Buspar] 10 mg PO BID 07/06/18 [History] Calcium Carbonate/Vitamin D3 [Calcium 500 + Vit D Caplet] 1 tab PO BID 07/06/18 [History] Denosumab [Prolia (For Outpatient Infusion)] 60 mg SQ Q6M 07/06/18 [History] Levalbuterol HCl [Xopenex Neb] 1.25 mg IH Q4H PRN 07/06/18 [History] Melatonin 3 mg PO HS 07/06/18 [History] Multivit-Min/FA/Lycopen/Lutein [A Thru Z Select Multivit Tab] 1 tab PO DAILY 07/06/18 [History] Pantoprazole Sodium 40 mg PO BID 07/06/18 [History] Tiotropium [Spiriva] 18 mcg IH DAILY 07/06/18 [History] Allergy/AdvReac Type Severity Reaction Status Date / Time No Known Allergies Allergy Verified 08/21/18 18:10 All Systems PM: A 10-system review of systems was performed and is negative for pertinent findin gs except as documented above in the HPI. Review of systems: Review of systems from his December 2017 [facility] hospitalization were reviewed and revised as below. Gen.: His weight has decreased from 82.9 kg on 12/20/2017 to 77.224 kg on admission now. This was unintentional. Cardiovascular: He has history of hypertension and atrial fibrillation but denies [place] heart failure angina DVT or pulmonary embolus. Respiratory: As per history of present illness GI: He denies disorders of his liver gallbladder or exocrine pancreas : He denies hematuria dysuria or kidney stones Neurologic: He denies large distribution strokes or seizures. Endocrine: He has borderline diabetes and hyperlipidemia but denies thyroid disease Hematology/oncology: Anemia workup 12/18/2017 showed probable iron deficiency. He denies internal malignancies or other blood disorders. Psychiatric: He takes Paxil and Seroquel but does not know the diagnoses for these. Mus[place] skeletal: He has muscle cramps and has had right ankle fracture surgical repair and left knee surgery. He denies gout or significant arthritis or other bone joint or muscle disorders. - Constitutional Vitals: Temp Pulse Resp BP Pulse Ox 97.7 F 141 25 111/71 96 08/22/18 11:20 08/22/18 11:20 08/22/18 11:20 08/22/18 11:20 08/22/18 11:20 Exam: Gen.: He is well-developed well-nourished male sitting on the side of bed who appears dyspneic HEENT: Head is atraumatic and normocephalic. Eyes: EOMI. There is no scleral icterus. Mouth: Mucosa is moist. Neck: There is no thyromegaly or adenopathy noted. Heart: Tachycardic rate approximately 140/m. No murmurs or gallops are heard per Lungs: He has markedly diminished breath sounds diffusely. No wheezing or crackles are heard. Abdomen: Soft and nontender. No masses or guarding are noted. Extremities: There is no cyanosis edema or clubbing noted. Dorsalis pedis and posterior tibial pulses are trace palpable bilaterally. Neurologic: Mental status: He is talkative and answers questions appropriately. Cranial nerves: Smile is symmetric. Forehead wrinkles bilaterally. Tongue pr otrudes midline. EOMI. Motor: There is no pronator drift. Cerebellar: Finger to nose is intact bilaterally. Skin: Warm and dry Internal Med - H&P Results - Labs CBC & Chem 7: 08/22/18 07:49 08/22/18 07:49 Labs: Short CBC 08/21/18 08/22/18 Range/Units 18:33 07:49 WBC 9.9 10.4 (4.3-11.1) K/mcL Hgb 9.7 L 10.6 L (12.9-16.9) g/dL Hct 33.1 L 36.4 L (37.5-50.1) % Plt Count 269 319 (140-400) K/mcL Neutrophils # 8.3 9.8 H (1.6-8.9) K/mcL BMP 08/21/18 08/22/18 18:33 07:49 Sodium 141 140 Potassium 3.9 4.9 D Chloride 93 L 94 L Carbon Dioxide 45 H* 42 H* BUN 26 H 28 H Creatinine 1.00 0.89 Glucose 140 H 203 H Calcium 9.9 9.5 Cardiac Enzymes 08/21/18 08/22/18 Range/Units 18:33 07:49 Troponin I 0.13 H* 0.10 H* (< 0.04) ng/mL Liver Function 08/21/18 Range/Units 18:33 Total Bilirubin 0.2 L (0.3-1.0) mg/dL AST 18 (13-39) Units/L ALT 18 (7-52) Units/L Alkaline Phosphatase 48 (34-104) Units/L Albumin 3.5 (3.5-5.7) g/dL - ABG Interpretation ABG results: 08/21/18 18:20 ABG pH 7.33 ABG pCO2 90 H* ABG pO2 105 H ABG HCO3 48 H ABG Total CO2 > 50 H ABG O2 Saturation 97 ABG Base Excess 18 H - Impressions ITS Impressions Chest X-Ray 08/21/18 18:04 IMPRESSION: Again noted are irregular appearing left upper lobe pulmonary nodules. A chest CT is suggested for further evaluation. D/ / Gilbert Serrano MD / Gilbert Serrano MD Interpreting Provider: Gilbert Serrano MD Head CT 08/21/18 18:05 IMPRESSION: No acute intracranial abnormality. D/ / Temi Carbone Cha, MD / Temi Carbone Cha, MD Interpreting Provider: Temi Carbone Cha, MD
[2018-08-22] MEDS ORDERED: *HR* Digoxin 0.5 MG/2 ML AMPUL IVP ONE (12:54)
[2018-08-22] MEDS ORDERED: ALPRAZolam 0.25 MG TABLET PO PRN (13:02)
[2018-08-22] MEDS ORDERED: Albuterol 2.5 MG/3 ML NEBULIZER IH PRN (13:03)
[2018-08-22] MEDS ORDERED: Verapamil 5 MG/2 ML VIAL IVP ONE (14:57)
[2018-08-22] MEDS ORDERED: *HR* Rivaroxaban 10 MG TABLET PO SCH (17:00)
[2018-08-22] MEDS ORDERED: Levofloxacin 500 MG/100 ML 500 MG/100 ML BAG IVPB SCH (21:00)
[2018-08-22] MEDS ORDERED: Lactobacillus 1 EACH CAP.SPRINK PO SCH (21:00)
[2018-08-22 22:11] VITALS: BP 147/58
--- NOTE | 2018-08-22 22:13 | Discharge Summary ---
Orders not resulted at time of discharge: Pending orders 08/21/18 18:33 Culture,Blood [BC] Stat 08/22/18 12:55 EV echocardiogram Routine 08/23/18 04:00 Basic Metabolic Panel AM 0400 Complete Blood Count [HEME] AM 0400 Ferritin AM 0400 Folate AM 0400 Hgb A1C AM 0400 Iron Profile AM 0400 Vitamin B12 AM 0400 Date of Encounter: 08/22/18 Time of Encounter: 22:11 - Discharge Diagnosis (1) Atrial fibrillation with RVR Priority: Secondary Status: Acute (2) Acute exacerbation of chronic obstructive airways disease Priority: Secondary Status: Acute (3) Acute respiratory failure with hypoxia and hypercapnia Priority: Primary Status: Acute Hospital course: Mr. Verde is a 72 year-old male with known COPD and atrial fibrillation that presented to ED from his halfway via ambulance on 08/21/18 secondary to AMS. Pt was evaluated in ED and deemed to have AMS secondary to hypercapnia from a COPD exacerbation. He was also found to be in atrial fibrillation with rapid ventricular response. He was admitted to med surg unit on telemetry as an DNR/DNI Arrest. He was treated with IV antibiotics and IV steroids and placed on BIPAP. After being given bolus IV digoxin and IV diltiazem, pt was placed on diltiazem drip for his atrial fibrillation with RVR. He remained in mild respiratory distress and oriented to person only. Being a [facility], transfer was required to another facility that is contracted with the [facility]. [facility] secondary to lack of telemetry beds. Pt's POA refused [facility] or [facility] Patient was thus transferred to [facility] for further management and ongoing care needs. Discharge discussed with: nurse, social work, call center consultant, other - Time Spent with Patient Total time spent providing and/or coordinating discharge services: Greater than 30 minutes - Discharge Medications Home Medications: Acetaminophen [Tylenol] 325 mg PO Q8H PRN 11/06/17 [History] Aspirin 81 mg PO DAILY 11/06/17 [History] Budesonide/Formoterol 160/4.5 [Symbicort 160/4.5] 2 puff IH BID 11/06/17 [History] Cholecalciferol (Vitamin D3) [Vitamin D3] 1,000 mg PO DAILY 11/06/17 [History] Docusate Sodium [Dok] 100 mg PO BID 11/06/17 [History] Gabapentin [Neurontin] 400 mg PO DAILY 11/06/17 [History] Ipratropium/Albuterol Neb [Duoneb] 1 vial IH Q6H PRN 11/06/17 [History] Losartan [Cozaar] 25 mg PO DAILY 11/06/17 [History] Methocarbamol [Robaxin] 500 mg PO Q4H PRN 11/06/17 [History] Quetiapine Fumarate [Seroquel] 400 mg PO BID 11/06/17 [History] Simvastatin [Zocor] 20 mg PO DAILY 11/06/17 [History] dilTIAZem HCl [Diltiazem 24Hr ER] 240 mg PO DAILY 11/06/17 [History] Paroxetine HCl [Paxil] 40 mg PO DAILY 12/17/17 [History] Sucralfate [Carafate] 1 gm PO ACHS 12/17/17 [History] predniSONE [PredniSONE] 4 mg PO DAILY 12/17/17 [History] Roflumilast [Daliresp] 500 mcg PO DAILY 07/05/18 [History] Buspirone HCl [Buspar] 10 mg PO BID 07/06/18 [History] Calcium Carbonate/Vitamin D3 [Calcium 500 + Vit D Caplet] 1 tab PO BID 07/06/18 [History] Denosumab [Prolia (For Outpatient Infusion)] 60 mg SQ Q6M 07/06/18 [History] Levalbuterol HCl [Xopenex Neb] 1.25 mg IH Q4H PRN 07/06/18 [History] Melatonin 3 mg PO HS 07/06/18 [History] Multivit-Min/FA/Lycopen/Lutein [A Th[employer] [facility] [employer] Multivit Tab] 1 tab PO DAILY 07/06/18 [History] Pantoprazole Sodium 40 mg PO BID 07/06/18 [History] Tiotropium [Spiriva] 18 mcg IH DAILY 07/06/18 [History] Allergies/Adverse Reactions: Allergy/AdvReac Type Severity Reaction Status Date / Time No Known Allergies Allergy Verified 08/21/18 18:10 Date of admission: 08/22/18 13:13 Primary care physician: PCP NONE Consults: 08/21/18 21:02 Consult to Nurse Navigator [CONS] Routine Comment: Discharging clinician: Lul Easton Anticipated date of discharge: 08/22/18 - Constitutional Vitals: Temp Pulse Resp BP Pulse Ox 97.5 F L 112 22 147/58 96 08/22/18 20:01 08/22/18 21:36 08/22/18 21:01 08/22/18 21:36 08/22/18 21:36 General appearance: Present: A&O X 1 - Head Head exam: Present: atraumatic, normocephalic - Respiratory Respiratory exam: Present: prolonged expiratory phase, wheezes - Cardiovascular Cardiovascular exam: Present: irregular rhythm, +S1, +S2 - GI/Abdominal GI/Abdominal exam: Present: soft, no peritoneal signs - Neurological Exam Neurological exam: Present: altered - Skin Skin exam: Present: dry, warm - Patient Status Disposition: Transfer Other Condition: Serious Functional capacity at discharge: bed bound Overall status at discharge: patient is not back to baseline - Discharge Instructions Follow Up With: NONE,PCP [Primary Care Provider] - 1 week
--- NOTE | 2018-08-23 21:18 | Electrocardiograph Report ---
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
== END 2018-08-22 22:10 | disposition other institution (70) | DRG 189 ==
LOC: INPPIK 17:55 → EMEROOPIK 17:55 → INPPIK 20:28
PROVIDERS: ADMIT Internal Medicine; ATTEND Internal Medicine